=== PATIENT | female | born 1965 | race Caucasian/White ===

== ENCOUNTER 2023-03-01 09:28 | Emergency (ER) | payer MEDICARE ==
[~2023-03-01] VITALS: Ht 162.6 cm; Wt 75.7 kg
[~2023-03-01 09:28] MED LIST: ALDACTONE25 MG PO; ANTIVERT25 MG PO; ATENOLOL25 MG PO; BACLOFEN10 MG PO; CARVEDILOL25 MG PO; CARVEDILOL3.125 MG PO; CORRECTOL5 MG PO; FUROSEMIDE20 MG PO; HYDROCODON-ACE1 EA10 PO; LANTUS100 UNITS/ SUB-Q; LEVAQUIN500 MG PO; LISINOPRIL40 MG PO; METFORMIN HCL1000 MG PO; METFORMIN HCL500 MG PO; MIRALAX17 GM PO; SPIRONOLACTONE100 MG NG; TRANSDERM-SCOP1 EA TD; TYLENOL EXTRA500 MG PO
[2023-03-01 10:12] LABS: BASOPHILS 0.3 % (0-2); EOSINOPHILS 5.8 % (0-6); HEMATOCRIT 31.9 % (35.0-50.0); HEMOGLOBIN 10.9 g/dL (12.0-18.0); LYMPHOCYTES 21.6 % (24-44); MCH 32.9 (27-36); MCHC 34.1 g/dl (30-36); MCV 96.4 fl (81-99); MONOCYTES 10.9 % (0-12); NEUTROPHILS 61.4 % (39-80); PLATELET COUNT 52 K/uL (140-440); RBC 3.31 M/ul (4.3-5.7); RDW 14.5 (10.5-15.0)
[2023-03-01 10:21] LABS: ALBUMIN 3.3 g/dL (3.4-5.0); ANION GAP 15.5 (7-21); BILIRUBIN, TOTAL 1.1 ng/dL (0.2-1.0); BUN/CREATININE RATIO 17.53 (6.0-28.6); CALCIUM 9.4 mg/dL (8.5-10.1); CREATININE, SERUM 1.54 mg/dL (0.55-1.02); POTASSIUM 4.5 mmol/L (3.5-5.1); PROTEIN, TOTAL 6.6 g/dL (6.4-8.2)
[2023-03-01 12:11] VITALS: BP 105/60
== END 2023-03-01 12:11 | disposition home or self-care (01) ==
LOC: ED 09:28
PROVIDERS: Emergency Medicine
DX: K42.9 Umbilical hernia without obstruction or gangrene (principal); E11.9 Type 2 diabetes mellitus without complications; I10 Essential (primary) hypertension; Z79.84 Long term (current) use of oral hypoglycemic drugs; Z79.899 Other long term (current) drug therapy
CPT/HCPCS: 36415; 74177; 80053; 83690; 85025; 99284-25; Q9967

== ENCOUNTER 2023-03-26 17:40 | Emergency (ER) | payer OTHER, MEDICARE ==
[~2023-03-26] VITALS: Ht 162.6 cm; Wt 79.0 kg
[~2023-03-26 17:40] MED LIST changes: -SPIRONOLACTONE100 MG NG; +SPIRONOLACTONE100 MG PO
--- OUTSIDE RECORDS SUMMARY | 2023-03-26 17:42 | XMS ---
PreManage Notification: MADELINE OLIVERA Security Control Supervisor Events No recent Security Events currently on file CRITERIA MET - [facility] - 2 Visits in 30 Days CARE PROVIDERS There are no care providers on record at this time. Camelia has no Care Guidelines for this patient. [facility] MO.) [facility] NOTE: Visits indicate total known visits. ED/C VISIT TRACKING (12 MO.) [facility] COMPLAINT: - FALL 03/01/2023 09:[address] [facility] [place] TYPE: Emergency COMPLAINT: - POST SURGERY POSS BOWEL OBSTRUCTION DIAGNOSES: - Essential (primary) hypertension - senior care (current) use of oral hypoglycemic drugs - Other buttermaker helper (current) drug therapy - Type 2 diabetes mellitus without complications - Umbilical hernia without obstruction or gangrene - Unspecified abdominal pain INPATIENT VISIT TRACKING (12 MO.) No inpatient visits to display in this time frame [email or web address]
[2023-03-26] MEDS ORDERED: TRULICITY0.75 MG/0. SUB-Q (18:11)
[2023-03-26] MEDS ORDERED: ELIQUIS5 MG PO (18:12)
[2023-03-26 18:15] LABS: BASOPHILS 0.7 % (0-2); EOSINOPHILS 4.2 % (0-6); HEMATOCRIT 30.9 % (35.0-50.0); HEMOGLOBIN 10.7 g/dL (12.0-18.0); LYMPHOCYTES 18.5 % (24-44); MCH 33.5 (27-36); MCHC 34.5 g/dl (30-36); MCV 97.2 fl (81-99); MONOCYTES 13.6 % (0-12); PLATELET COUNT 75 K/uL (140-440); RBC 3.18 M/ul (4.3-5.7); RDW 15.7 (10.5-15.0)
[2023-03-26 18:16] LABS: INR 1.73 (0.80-1.30); PROTIME 19.4 Sec (11.2-14.2)
[2023-03-26 18:21] LABS: ALBUMIN 2.9 g/dL (3.4-5.0); ALBUMIN/GLOBULIN RATIO 0.78 (1.1-2.4); ANION GAP 15.4 (7-21); BILIRUBIN, TOTAL 1.4 ng/dL (0.2-1.0); BUN/CREATININE RATIO 19.33 (6.0-28.6); CALCIUM 8.9 mg/dL (8.5-10.1); CREATININE, SERUM 1.5 mg/dL (0.55-1.02); POTASSIUM 4.4 mmol/L (3.5-5.1); PROTEIN, TOTAL 6.6 g/dL (6.4-8.2)
[2023-03-26 21:28] VITALS: BP 120/76
--- NOTE | 2023-03-28 15:21 | EKG ---
[facility] [address] [facility] [facility] [place], [place] [address] Signed Normal sinus rhythm Normal ECG No previous ECGs available Confirmed by REENA BUSH MD ([id number]) on 03/28/2023 3:21:35 PM Electronically Signed By: REENA BUSH 03/28/23 1521 PATIENT NAME: MADELINE OLIVERA Electrocardiogram DATE OF : 69 PHYSICIAN: REENA BUSH REPORT #: [id number] REPORT IS CONFIDENTIAL AND NOT TO BE RELEASED WITHOUT AUTHORIZATION
== END 2023-03-26 21:29 | disposition short-term general hospital (02) ==
LOC: ED 17:40
PROVIDERS: Emergency Medicine
DX: S72.142A Displaced intertrochanteric fracture of left femur, initial encounter for closed fracture (principal); W01.0XXA Fall on same level from slipping, tripping and stumbling without subsequent striking against object, initial encounter; Y93.54 Activity, bowling; I85.00 Esophageal varices without bleeding; B19.20 Unspecified viral hepatitis C without hepatic coma; I82.890 Acute embolism and thrombosis of other specified veins; D69.6 Thrombocytopenia, unspecified; E11.9 Type 2 diabetes mellitus without complications; I10 Essential (primary) hypertension; Z79.01 Long term (current) use of anticoagulants; Z79.84 Long term (current) use of oral hypoglycemic drugs; Z79.899 Other long term (current) drug therapy
CPT/HCPCS: 36415; 71045; 72170; 73502; 80053; 85025; 85610; 93005; 93010; 96374; 96375; 96376; 99285-25; J1170; J2405